=== PATIENT | male | born 1970 | race Caucasian/White ===

== ENCOUNTER 2025-06-06 06:27 | Day surgery (SDC) | payer OTHER, SELFPAY ==
[2025-05-23 14:04] VITALS: BMI 26.4
[2025-06-06] VITALS (9 sets, daily range): BP systolic 110–142; BP diastolic 68–100; BMI 26.4
[2025-06-06] MEDS: TYLENOL 1000 MG PO (09:05)
[2025-06-06] MEDS: NORMOSOL-R/PLASMALYTE-A 1000 IV (09:06)
--- NOTE | 2025-06-06 10:48 | W.SUR.PREOP ---
Pre-Operative Surgical Note
-
I have examined this patient prior to the performance of the scheduled procedure.
The patient's condition is unchanged from the time of the current History and
Physical and the patient is able to undergo the scheduled procedure.
--- NOTE | 2025-06-06 10:48 | HP.FOC2 ---
Focused History & Physical
Chief Complaint
HPI:
Chief Complaint: Bilateral inguinal hernias
HPI / Indication for Planned Procedure: This is a 54-year-old male who presents with symptomatic bilateral inguinal hernias, right greater than left. Will plan for a robotic bilateral inguinal hernia repair with mesh.
Relevant Past Medical History: Negative
Relevant Social History: Negative
Relevant Family History: Negative
Relevant Past Surgical History: Negative
Review of Systems
Review of Pertinent Systems: All Systems Negative
Medication
See Medication form for detailed medications: No
Medication List (including Herbals & OTC):
No Meds [No Current Medications] 05/31/25
Medications Reviewed: Yes
Allergies and Reactions
Patient has Allergies: No
Noted Allergies and Reactions:
Allergy/AdvReac Type Severity Reaction Status Date / Time
No Known Allergies Allergy Verified 06/06/25 08:59
Pertinent Physical Exam
All Other Systems: Negative
Head/Neck: Normal
Diagnosis / Assessment
This is a 54-year-old male who presents with symptomatic bilateral inguinal hernias, right greater than left. Will plan for a robotic bilateral inguinal hernia repair with mesh.
Plan / Procedure
This is a 54-year-old male who presents with symptomatic bilateral inguinal hernias, right greater than left. Will plan for a robotic bilateral inguinal hernia repair with mesh.
Anesthesia/Sedation to be done by Anesthesia Provider: Yes
--- NOTE | 2025-06-06 13:28 | W.IMMPOSTOP ---
Surgical Immed Post Op Note
-
Primary Surgeon: Ricci Cavanaugh MD
Assisting Surgeon: None
Pre-op Diagnosis: Bilateral inguinal hernias
Post-op Diagnosis: Same
Procedure Performed:
1. Robotic bilateral inguinal hernia repair with mesh
2. Excision of a right spermatic cord lesion
Anesthesia Type: General
Specimen / Cultures: None
Estimated Blood Loss: 7 cc
Complications: None
Operative Findings: Large bilateral inguinal hernias. On the right side the patient had a large direct, as well as a small indirect going through the direct space (medial to the epigastrics). In addition the patient had a moderate-sized indirect
going through the normal indirect space lateral to the epigastrics. There was no cord lipoma on this side, and there was no femoral component. On the patient's left side the patient had a very large direct hernia with no indirect or femoral
component. There was a small cord lipoma that was reduced and resected. The direct hernias were imbricated down to Juan's ligament using 2-0 V-Loc 180 sutures. The MPO bilaterally was reinforced with extra-large mid weight uncoated
polypropylene Bard 3D max mesh which was secured at coopers, in the midline and superior laterally. The flaps were then closed. The Veress needle was used to desufflate the hernia flaps as well as instilled Marcaine for pain block. A small rent
in the peritoneum was closed with a 2-0 Vicryl [id number]. The mesh was noted to lay flat bilaterally.
[2025-06-06] MEDS: ROXICODONE 5 MG PO (15:18)
--- NOTE | 2025-06-10 12:49 | OR.RPT ---
Operative Report
Operative Report
Patient Name: Wily Mccall
: 06/20/1962
Date of Operation: 06/06/2025
Preoperative Diagnosis: Reducible Inguinal hernia, bilateral
Postoperative Diagnosis: Bilateral inguinal hernias, right cord lipoma
Procedure(s):
1. Robotic Inguinal Hernia Repair with mesh, bilateral (MARQUES approach)
2. Excision of lesion of a spermatic cord lipoma (25000�[id number])
Surgeon(s):
Dr. Cavanaugh
Credit Risk Analyst(s):
ZACHARY Ponce
Anesthesia: General
Estimated Blood Loss: 7 cc
Urine Output: None
Drains/Lines/Implants: XLarge 3D Max Bard mid weight uncoated polypropylene mesh x2
Specimens: None
Indication for surgery: The patient has a history of groin pain and noted on exam to have asymptomatic right as well as a left inguinal Hernia(s). Following review of therapeutic options they have elected to undergo a minimally invasive repair.
Operative Findings: Large bilateral inguinal hernias. On the right side the patient had a large direct, as well as a small indirect going through the direct space (medial to the epigastrics). In addition the patient had a moderate-sized indirect
going through the normal indirect space lateral to the epigastrics. There was no cord lipoma on this side, and there was no femoral component. On the patient's left side the patient had a very large direct hernia with no indirect or femoral
component. There was a small cord lipoma that was reduced and resected. The direct hernias were imbricated down to Juan's ligament using 2-0 V-Loc 180 sutures. The MPO bilaterally was reinforced with extra-large mid weight uncoated
polypropylene Bard 3D max mesh which was secured at coopers, in the midline and superior laterally. The flaps were then closed. The Veress needle was used to desufflate the hernia flaps as well as instilled Marcaine for pain block. A small rent
in the peritoneum was closed with a 2-0 Vicryl [id number]. The mesh was noted to lay flat bilaterally.
Details of the operation:
The patient was brought to the Operating Room and placed in the supine position with the arms tucked. IV antibiotics were infused and Venodyne stockings placed. Following uneventful induction of general endotracheal anesthesia, an orogastric tube
was placed. The abdomen was prepped and draped in the usual sterile fashion. The abdomen was entered using a Veress technique which required 1 pass(es), pneumoperitoneum to 15 mmHg was obtained without difficulty. An 8mm trochar was passed through
the abdominal wall roughly 20 cm cephalad to the inguinal canal. We then confirmed that no inadvertent injury was made while passing the trocar or Veress needle. We then placed two additional 8 mm ports in the left upper and right upper quadrants.
We then docked the robot with a Prograsper in the left hand port and monopolar scissors in the right. Large bilateral hernias were noted. We then began by creating a flap on the right side at the level of the ASIS laterally working our way
medially to the medial umbilical fold. Staying onto the peritoneum we were able to circumferentially dissect around the hernia sac and and peel it off of the underlying spermatic cord and testicular vessels, taking care to preserve them. Medially
we identified the midline pubis as well as Juan's ligament and ensured to dissect 2 cm below the pubic rim over the bladder. After exposure of the entire myopectineal orifice we identified and reduced on the right side a large direct hernia as
well as a small indirect hernia going through the direct space (medial to the epigastrics) as well as a moderate-sized indirect hernia going through the normal anatomic space lateral to the epigastrics. There was no cord lipoma on the side and
there was no femoral component.
We then repeated the same dissection on the left side and after achieving the critical view of the MPO we identified a very large direct hernia with no indirect or femoral component. There was a small cord lipoma that was reduced and resected. The
direct hernias on both sides was imbricated down to Juan's ligament using 2-0 V-Loc 180 sutures. The myopectineal orifices bilaterally were then reinforced with extra-large mid weight uncoated polypropylene Bard 3D max mesh which was secured at
coopers, in the midline and superior laterally. The flap was then closed with a running 2-0 barbed monocryl suture ensuring that the tails were cut flush with the medial fat pad so that no barbs were exposed. During the closure of the flap the
Veress needle was inserted and 20 cc of quarter percent Marcaine was instilled. The area in the flap cavity was then evacuated of air confirming that the mesh was flush and there were no folds. A small rent in the peritoneum was noted and closed
with 2-0 Vicryl. All needles and instruments were then removed and the robot was undocked. The abdomen was then desufflated, and pneumoperitoneum evacuated. All skin sites were then closed with 4-0 Monocryl followed by Dermabond. Counts were
correct and overall, the patient tolerated the procedure well and was taken to the Recovery Room postoperatively in stable condition.
I was the attending physician and performed the procedure with assistance of the PA above. The assistance of ZACHARY Ponce was required due to the complexity of the procedure. During the procedure Cindy assisted with port placement, instrument
and needle exchanges, and closure of the wound. I was present for all portions of the case, excluding skin closure.
Ricci Cavanaugh MD
== END 2025-06-06 16:35 | disposition home or self-care (01) ==
LOC: SDS 06:27
PROVIDERS: ATTENDING PHYSICIAN Surgery; FAMILY PHYSICIAN Family Medicine
DX: K40.20 Bilateral inguinal hernia, without obstruction or gangrene, not specified as recurrent (principal)
CPT/HCPCS: 49650; 93005; C1781